=== PATIENT | female | born 1965 | race Caucasian/White ===

== ENCOUNTER → 2017-10-17 06:06 | Outpatient (CLI) | payer OTHER, SELFPAY ==
--- NOTE | 2017-10-17 21:45 | STRESSREP ---
Stress Test Report Exercise myocardial perfusion stress test. 52-year-old lady with a history of chest pain. Medications: Lisinopril hydrochlorothiazide. Resting EKG demonstrates normal sinus rhythm with rate of 65 beats minute normal intervals and noted resting blood pressure 730/72 mmHg. The patient exercised according to regular Mehran protocol for total duration of 7 minutes and 30 seconds completing 1 minute and 30 seconds to stage III of the Mehran protocol the maximum heart rate attained was 146 bpm which was 86% of maximum predicted heart rate the maximum workload was 9.3 metabolic equivalents. The patient maintained sinus rhythm throughout the recording with occasional premature ventricular complexes noted. At peak exercise was approximately [address] depression noted in leads II, III and aVF and V5 and V6. During recovery however appeared to be horizontal to downsloping ST depression of approximately 0.7 mm noted in the same leads. It reached approximately 1.[address] depression noted in lead aVF. The patient also complained of mild right-sided chest discomfort as well as right arm discomfort which appeared to dissipate on termination of the exercise. The above though not diagnostic is suggestive of ischemia. The resting blood pressure is 130/72 with a peak blood pressure 160/80 mmHg. Myocardial perfusion protocol. 14.2 mCi of technetium 99m sestamibi was injected at rest. The patient exercised for 7 minutes and 30 seconds attaining 86% of maximum predicted heart rate and a workload of 9.3 metabolic equivalents at peak exercise 44.7 mCi of technetium 99m sestamibi was injected stress images were obtained stress and rest images were reconstructed and compared in the short axis vertical long and horizontal long axis. Gated images were also obtained next Perfusion SPECT analysis: Review of the stress images demonstrate normal uptake of tracer noted in all areas of the myocardium. The resting images similarly demonstrate normal uptake of tracer noted in all areas of the myocardium. No obvious areas of ischemia are noted. No previous infarct is present. Gated SPECT analysis: The gated ejection fraction is noted to be 74%. Conclusion: Exercise myocardial perfusion stress test with no nuclear images suggestive of ischemia. EKG changes suggestive but not diagnostic of ischemia with chest discomfort which appears to be indeterminate. Preserved ejection fraction present.
== END ==
PROVIDERS: Family Provider Family Medicine; PCP Family Medicine; Visit Provider Family Medicine
DX: R07.9 Chest pain, unspecified (principal)
CPT/HCPCS: 78452; 93017; A9500; A4216

== ENCOUNTER 2023-11-26 03:33 | Emergency (ER) | payer OTHER, SELFPAY ==
[2023-11-26 03:34] VITALS: BP 158/77; PULSE 66; RESP 16; TEMP 36.5; O2SAT 97; BMI 30.4
--- NOTE | 2023-11-26 04:21 | EX.ED.DYSGE1 ---
HPI History of Present Illness Chief Complaint: Allergic Reaction Informant: patient Narrative Narrative: Patient is a 58-year-old female with past medical history of hypertension. She states a few hours ago she was stung in the left hand by a bee. She states that the area became swollen and red and painful almost immediately after the initial sting. She states she is taken oral Benadryl but despite this the redness and swelling has extended into the proximal forearm. She denies any difficulty breathing or swallowing but based on the allergic reaction spreading she was concerned and therefore comes in for evaluation. [facility] Medical History (Updated 11/26/23 @ 23:[address] Alex Rudd, DO) HTN (hypertension) Home Medications ?Medication ?Instructions ?Recorded ?Last Taken ?Type desonide 0.05 % topical cream 1 applic topical TID PRN itching 11/26/23 Unknown Rx #60 grams prednisone 20 mg tablet 40 mg (2 x 20 mg) PO DAILY 5 days 11/26/23 Unknown Rx #10 tabs Allergy/AdvReac Type Severity Reaction Status Date / Time No Known Allergies Allergy Verified 11/26/23 03:35 Surgical History (Updated 11/26/23 @ 03:36 by Karena Valdivia) H/O right heart catheterization Hx of cholecystectomy Social History Smoking Status: Never smoker ROS ROS ED Constitutional Constitutional ED: Denies chills or fever(s) Eyes Eyes: Denies change in vision ENT ENT ED: Denies sore throat Cardiovascular Cardiovascular: Denies chest pain Respiratory/Chest Respiratory/Chest: Denies cough or dyspnea Gastrointestinal Gastrointestinal: Denies abdominal pain, diarrhea, nausea or vomiting Genitourinary Genitourinary ED: Denies dysuria Musculoskeletal Musculoskeletal: Denies myalgias Integumentary Reports other Details: Positive redness and swelling to left hand/forearm Neurologic Neurologic: Denies headache(s) Hematologic/Lymphatic Hematologic/Lymphatic: Denies easy bleeding or easy bruising Allergic/Immunologic Allergic/Immunologic ED: Denies mouth swelling or tongue swelling EXAM Physical Exam Const Vital Signs: 11/26/23 03:34 11/26/23 04:36 Temperature 97.7 F L 97.7 F L Temperature Source Oral Pulse Rate 66 65 Respiratory Rate 16 16 Blood Pressure 158/77 H 140/74 H Blood Pressure Mean 104 96 Pulse Ox 97 97 Positive well nourished and well developed General Appearance ED: well developed HEENT HEENT Narrative: No tongue or lip swelling no oral lesions no airway edema or compromise Eyes PERRL and EOMs intact bilaterally Neck supple Resp normal respiratory effort and clear to auscultation bilaterally Resp Narrative: No nasal flaring retractions tachypnea or accessory muscle Cardio regular rate and regular rhythm Extremity Extremity Narrative: Left upper extremity is neurovascularly intact. Patient has soft tissue swelling with erythema and warmth to the thenar eminence of the left hand that extends into the proximal third of the forearm most consistent with insect sting. No retained stinger noted. No obvious abscess formation. No lymphangitic streaking. Neuro oriented x3, CN's II-XII intact bilaterally and no sensory deficits noted Sensorium / Orientation: alert Motor Exam: strength 5/5 throughout Psych mental status grossly normal Skin Skin Narrative: Soft tissue changes of the left arm/hand as documented above MDM MDM MDM Narrative Medical decision making narrative: Patient arrived to the ER hypertensive but has a past medical history of this. She reported symptoms occurred after an initial sting with no other exposure. She did not have tongue or lip swelling or difficulty breathing or swallowing therefore there is no anaphylaxis changes and by physical exam there is no obvious cellulitis or abscess findings either. Compartments are soft and compressible going against compartment syndrome as well. History and exam is consistent with acute localized allergic reaction secondary to the sting. Without signs of infection compartment syndrome or anaphylaxis there is no need for workup and patient can be placed on steroid pills as well as topical cream to control the allergic reaction but is otherwise safe for the. History & Record Review Discussion w/independent historian: Patient Discharge Plan Triage Chief Complaint: Allergic Reaction ED Provider: Alex Rudd Dx/Rx/DC Orders Clinical Impression: Allergic reaction to insect sting, Hypertension Instructions: ED BEE STING General Allergic Rxn Prescriptions: New prednisone 20 mg tablet 40 mg PO DAILY 5 Days Qty: 10 0RF desonide 0.05 % cream 1 applic topical TID PRN (Reason: itching) Qty: 60 0RF Primary Care Provider: ANASTASIIA PATEL Referrals: ANASTASIIA PATEL CRNP [Primary Care Provider] - Activity Restrictions/Additional Instructions: Please continue the Benadryl as needed for extra itch relief and swelling. After 2 to 3 days of the steroid cream and pills the skin irritation should resolve. If you have any further concerns or worsening of symptoms please return to the hospital for repeat evaluation Print Language: Wolof Disposition Disposition: Home, Self Care Discharge Date/Time: 11/26/23 04:39
[2023-11-26] MEDS: predniSONE 20 MG Tablet 60 MG PO (04:34)
[2023-11-26 04:36] VITALS: BP 140/74; PULSE 65; RESP 16; TEMP 36.5; O2SAT 97
== END 2023-11-26 04:39 | disposition home or self-care (01) ==
PROVIDERS: Emergency Provider Emergency Medicine; PCP Nurse Practitioner Adult Health; Visit Provider Emergency Medicine
DX: T63.441A Toxic effect of venom of bees, accidental (unintentional), initial encounter (principal); I10 Essential (primary) hypertension
CPT/HCPCS: 99282